=== PATIENT | male | born 1990 | race Caucasian/White ===

== ENCOUNTER 2018-05-13 23:12 | Emergency (ER) | payer BC, SELFPAY ==
[2018-05-13 23:30] VITALS: BP 149/94; PULSE 72; RESP 16; TEMP 36.7; O2SAT 100; BMI 35.9
--- NOTE | 2018-05-14 00:51 | ED_ITS ---
HPI - Chest Pain General Chief Complaint: Chest Pain Stated Complaint: Sternum pain/chest pain/deep breath hurts Time Seen by Provider: 05/14/18 00:50 Source: patient Mode of arrival: ambulatory Limitations: no limitations History of Present Illness HPI narrative: Patient states his chest has been hurting for about a week. He states the pain is located on the right side of his sternum, and that sometimes he feels a popping sensation when he takes a deep breath. He states he has been taking shallower breaths, because it hurts to breathe deeply. He denies fevers , cough, or trauma. He states that he has had no abdominal pain or vomiting. Patient does smoke cigarettes. He is otherwise healthy. MD complaint: chest pain Onset (ago): week(s) (One) Duration: intermittent Onset: during rest Pain location: right chest Severity: mild Quality: sharp Pain radiation: none Relieving factors: nothing Exacerbating factors: inspiration Context: other (Patient is not sure what triggered the pain. 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.) Associated symptoms: other (No nausea, vomiting, diaphoresis, dyspnea, sense of impending doom, syncope, palpitations, fever, cough, or leg swelling.) Treatments prior to arrival chest pain: none (Patient states he is here because his told him to come in.) Related Data Allergies Allergy/AdvReac Type Severity Reaction Status Date / Time No Known Drug Allergies Allergy Verified 05/13/18 23:34 Review of Systems Review of Systems All systems reviewed & are unremarkable except as noted in HPI and below Constitutional Denies chills, Denies fever(s), Denies lethargy and Denies weakness Eyes Denies change in vision, Denies eye discharge, Denies irritation and Denies loss of vision ENT Ears, Nose, Mouth, and Throat: Denies change in voice, Denies neck pain and Denies sore throat Cardiovascular Reports chest pain, Denies irregular heart rhythm, Denies lightheadedness, Denies palpitations, Denies dyspnea, Denies dyspnea on exertion and Denies orthopnea Respiratory Denies cough, Denies dyspnea, Denies dyspnea on exertion and Denies wheezing Gastrointestinal Gastrointestinal: Denies abdominal pain, Denies change in bowel habits, Denies diarrhea, Denies nausea and Denies vomiting Genitourinary Denies hematuria, Denies flank pain, Denies urinary incontinence and Denies urinary urgency Musculoskeletal Denies neck pain Integumentary/Breasts Denies pruritus, Denies erythema, Denies rash and Denies wounds Neurologic Denies confusion, Denies loss of vision and Denies weakness Psychiatric Denies anxiety, Denies confusion, Denies depression, Denies homicidal ideation and Denies suicidal ideation Endocrine Denies palpitations Hematologic/Lymphatic Denies easy bruising Allergic/Immunologic Denies wheezing PFSH Medical History Healthy adult (Acute) Surgical History No pertinent past surgical history (Acute) Social History Smoking Status: Never smoker Exam Initial Vital Signs Initial Vital Signs: Vital Signs Temperature 98.1 F 05/13/18 23:30 Pulse Rate 72 05/13/18 23:30 Respiratory Rate 16 05/13/18 23:30 Blood Pressure 149/94 H 05/13/18 23:30 Pulse Oximetry 100 05/13/18 23:30 Const General: cooperative and well developed Nutritional Appearance: well nourished Orientation: alert, awake, oriented x3 and not confused [facility] Head: normocephalic and atraumatic Ears: external ears normal Nose: external nose normal and No nasal discharge Face and sinus: face symmetric and No dry mucous membranes Mouth: oral mucosae normal and moist mucous membranes Eyes General: appearance normal, both eyes and all related structures Eyelids: eyelids normal Conjunctivae: conjunctivae normal Sclera: sclerae normal Pupils: PERRL EOM: EOM intact bilaterally Neck Neck: normal visual inspection, trachea midline, No lymphadenopathy, No midline deformity and No JVD Lymphatic: No lymphedema Chest Chest: normal inspection of the chest Resp Effort & Inspection: normal respiratory effort, able to speak in complete sentences, no respiratory distress and no use of accessory muscles Auscultation: clear to auscultation bilaterally, no rales, no rhonchi and no wheezes Cardio Rate: regular rate Rhythm: regular rhythm Heart Sounds: no click, no gallops, no murmurs and no rubs Pulses: normal peripheral pulses GI Inspection: non-distended Palpation: soft, no hepatosplenomegaly, No guarding, No pulsatile mass and No tender Auscultation: normal bowel sounds Back/Spine/Pelvis Back: No CVA tenderness Cervical Spine: cervical ROM normal and No pain with cervical ROM Thoracic/Lumbar Spine: thoracic and lumbar spine normal to inspection Skin General: no rashes or lesions noted, No jaundice and No petechiae Neuro General: alert, oriented x3, gait normal and no focal motor deficits Speech: speech normal Extrem General: full ROM, no clubbing, cyanosis or edema, no pedal edema and no calf tenderness Psych Appearance: well kempt Mental Status: mental status grossly normal Attitude: cooperative Thought Content: normal and suicidality Judgment: judgment good Course Course Narrative: Patient's pain was most consistent with a chest wall etiology. A chest x-ray was performed and found to be negative. I did not feel the patient needed a cardiac workup. Vital Signs - 8 hr 05/13/18 23:30 Temperature 98.1 F Pulse Rate 72 Respiratory Rate 16 Blood Pressure 149/94 H Pulse Oximetry 100 MDM - Chest Pain Medical Records Data Attestation: I reviewed the patient's medical records. Imaging Data Chest x-ray: Attestation: I personally reviewed and interpreted this imaging study as follows: My impression: Negative Radiologist's impression: PROCEDURE: XR CHEST 2V INDICATIONS: chest pain TECHNIQUE: 2 views of the chest were acquired. COMPARISON: None. FINDINGS: Surgical changes and devices: None. Lungs and pleura: No pleural effusions or pneumothorax. Lungs are clear. Mediastinum: Mediastinal contours are normal. Heart size is normal. Bones and chest wall: No suspicious bony abnormalities. Soft tissues appear unremarkable. IMPRESSION: No acute cardiopulmonary disease. Dictated by: Katlin Barroso M.D. on 05/14/2018 at 9:26 Approved by: Katlin Barroso M.D. on 05/14/2018 at 9:59 Discharge Plan Departure Patient Disposition: Home Clinical Impression: Acute costochondritis Discharge Date/Time: 05/14/18 01:54 Interventions: ED Discharge Assessment Last Done: 05/14/18 01:54 Instructions: DI for Costochondritis Activity Restrictions/Additional Instructions: Your chest x-ray looks good. There is no sign of a serious cause severe chest pain. Referrals: [facility] [Provider Group] (Please follow up as needed.)
--- NOTE | 2018-05-14 01:00 | DI.RAD.S_ITS ---
PROCEDURE: XR CHEST 2V INDICATIONS: chest pain TECHNIQUE: 2 views of the chest were acquired. COMPARISON: None. FINDINGS: Surgical changes and devices: None. Lungs and pleura: No pleural effusions or pneumothorax. Lungs are clear. Mediastinum: Mediastinal contours are normal. Heart size is normal. Bones and chest wall: No suspicious bony abnormalities. Soft tissues appear unremarkable. IMPRESSION: No acute cardiopulmonary disease. Dictated by: Katlin Barroso M.D. on 05/14/2018 at 9:26 Approved by: Katlin Barroso M.D. on 05/14/2018 at 9:59
[2018-05-14 01:54] VITALS: BP 122/85; PULSE 65; RESP 12; O2SAT 100
== END 2018-05-14 01:54 | disposition home or self-care (01) ==
PROVIDERS: Emergency Provider Emergency Medicine
DX: M94.0 Chondrocostal junction syndrome [Tietze] (principal)
CPT/HCPCS: 71046; 99282; 99283